=== PATIENT | female | born 1975 | race Caucasian/White ===

== ENCOUNTER 2017-03-27 14:17 | Emergency (ER) | payer OTHER ==
[~2017-03-27 14:17] MED LIST: AMOXICILLIN PO; MEDROL PO; ORUDIS75 M1 DOB; VICODIN 5/500 T1 TAB PO
== END 2017-03-27 14:33 | disposition home or self-care (01) ==
LOC: CFTX 14:17
DX: L23.9 Allergic contact dermatitis, unspecified cause (principal); F17.210 Nicotine dependence, cigarettes, uncomplicated
CPT/HCPCS: 99282